=== PATIENT | female | born 1955 | race Caucasian/White ===

== ENCOUNTER 2017-02-12 21:43 | Emergency (ER) | payer BC ==
[2017-02-12] MEDS ORDERED: IPRATROPIUM/ALBUTEROL 3 ML VIAL NEB ONE ×3 (22:02→23:39)
--- NOTE | 2017-02-12 22:11 | ED.PDOC ---
History of Present Illness - General Chief Complaint: Respiratory Problem Stated Complaint: DYSPNEA Time Seen by Provider: 02/12/17 22:10 Source: patient Exam Limitations: no limitations - History of Present Illness Initial Comments: Bethany Andrews 61 y/o female brought by ems with jerky movements ,shaky more leg swelling and increasing confusion noted by that got worse today.She also fell yesterday stated she looks weak.Has CHF,COPD,DM 2.Has home oxygen wears it 24 hours. Timing/Duration: getting worse, other - one month Activities at Onset: rest Possible Cause: occasional episodes Improving Factors: nothing Worsening Factors: nothing Associated Symptoms: wheezing Respiratory Risk Factors: other - copd,chf Allergies/Adverse Reactions: Allergies NO KNOWN ALLERGY Allergy (Verified 04/14/14 18:03) Home Medications: Ambulatory Orders RX: Gabapentin 300 mg PO TID 06/21/15 Furosemide [Lasix] 20 mg PO DAILY@0700,1200 #60 tab 06/22/15 Doxycycline Hyclate [Morgidox 1X50MG] 50 mg PO DAILY 02/12/17 Exenatide [Bydureon] 2 mg SC WKLY 02/12/17 Metformin HCl [Metformin HCl ER] 500 mg PO BID 02/12/17 Review of Systems - Review of Systems Constitutional: States: weakness EENTM: States: no symptoms reported Respiratory: States: see HPI Cardiology: States: see HPI Genitourinary: States: no symptoms reported Musculoskeletal: States: no symptoms reported Neurological: States: see HPI Past Medical History (General) - Patient Medical History Hx Seizures: No Hx Stroke: No Hx Dementia: No Hx Asthma: No Hx of COPD: Yes Hx Cardiac Disorders: No Hx Congestive Heart Failure: Yes Hx Pacemaker: No Hx Hypertension: Yes Hx Thyroid Disease: No Hx Diabetes: Yes Hx Gastroesophageal Reflux: No Hx Renal Disease: No Hx Cancer: Yes - CERVICAL Hx of HIV: No Hx Hepatitis C: No Hx MRSA: No Surgical History: other - hysterectomy,right hip,left shoulder - Vaccination History Hx Tetanus, Diphtheria Vaccination: No Hx Influenza Vaccination: No Hx Pneumococcal Vaccination: No Immunizations Up to Date: Yes - Social History Hx Tobacco Use: Yes Hx Chewing Tobacco Use: No Hx Alcohol Use: No Hx Substance Use: No Hx Substance Use Treatment: No Hx Depression: No Hx Physical Abuse: No Hx Emotional Abuse: No Hx Suspected Abuse: No - Activities of Daily Living Patient Lives Alone: No - Grooming Ability: Independent Eating (Feeding) Ability: Independent Toileting Ability: Independent - Female History Patient is a Female of Child Bearing Age (10 -59 yrs old): No Patient : No Family Medical History - Family History Mother Living Status: Still Living Hx Family Asthma: Yes Hx Family Congestive Heart Failure: Yes Hx Family Hypertension: Yes Hx Family Stroke: No Hx Cardiac Disease: No Hx Family Diabetes: No Hx Family Cancer: No Hx Family;Other: COPD-E Physical Exam - Physical Exam General Appearance: No apparent distress, Other - somnolent Eyes, Ears, Nose, Throat Exam: PERRL/EOMI, normal ENT inspection, pharynx normal Neck: non-tender, full range of motion, supple Respiratory: no respiratory distress, no accessory muscle use, decreased breath sounds, rales - bilaterally Cardiovascular/Chest: normal peripheral pulses, no murmur, tachycardia Peripheral Pulses: radial,right: 2+, radial,left: 2+ Gastrointestinal/Abdominal: non tender, soft, no organomegaly, other - obese, anasarca Extremity: non-tender Neurologic: no motor/sensory deficits, other - somnolent Skin Exam: cyanosis - nailbeds/clubbing fingers Lymphatic: no adenopathy Progress - Progress Progress: 02/12/17 23:57 Vital Signs - 8 hr 02/12/17 02/12/17 02/12/17 21:55 22:10 22:44 Temperature 98.1 F Pulse Rate 100 H Pulse Rate [ 100 H 104 H Left Radial] Respiratory 22 22 22 Rate Blood Pressure 147/72 151/86 [Left Arm] O2 Sat by Pulse 86 L 94 L 88 L Oximetry 02/12/17 23:31 Temperature 98.1 F Pulse Rate 100 H Pulse Rate [ 101 H Left Radial] Respiratory 26 H Rate Blood Pressure 152/83 [Left Arm] O2 Sat by Pulse 86 L Oximetry - Results/Orders Results/Orders: Laboratory Tests 02/12/17 02/12/17 02/12/17 22:31 22:31 22:31 WBC 11.3 H RBC 4.56 Hgb 13.6 Hct 42.5 MCV 93.2 MCH 29.9 MCHC 32.0 L RDW 15.8 H Plt Count 239 MPV 8.7 Absolute Neuts (auto) 8.90 H Absolute Lymphs (auto) 1.20 Absolute Monos (auto) 1.00 H Absolute Eos (auto) 0.20 Absolute Basos (auto) 0.10 Neutrophils % 78.5 H Lymphocytes % 10.4 L Monocytes % 9.0 Eosinophils % 1.4 Basophils % 0.7 D-Dimer, Quantitative Sodium 138 Potassium 4.0 Chloride 95 L Carbon Dioxide 35 H Anion Gap 12.0 BUN 15 Creatinine 1.01 BUN/Creatinine Ratio 14.9 Random Glucose 117 H Serum Osmolality 277.5 Calcium 8.5 Total Bilirubin 0.6 AST 15 ALT 16 Alkaline Phosphatase 69 Troponin I 0.02 B-Natriuretic Peptide 130.0 H Serum Total Protein 7.7 Albumin 3.7 Globulin 4.0 H Albumin/Globulin Ratio 0.9 L 02/12/17 22:52 WBC RBC Hgb Hct MCV MCH MCHC RDW Plt Count MPV Absolute Neuts (auto) Absolute Lymphs (auto) Absolute Monos (auto) Absolute Eos (auto) Absolute Basos (auto) Neutrophils % Lymphocytes % Monocytes % Eosinophils % Basophils % D-Dimer, Quantitative < 230 Sodium Potassium Chloride Carbon Dioxide Anion Gap BUN Creatinine BUN/Creatinine Ratio Random Glucose Serum Osmolality Calcium Total Bilirubin AST ALT Alkaline Phosphatase Troponin I B-Natriuretic Peptide Serum Total Protein Albumin Globulin Albumin/Globulin Ratio Had 1800 cc urine output 2 hours after bumex drip - EKG/XRAY/CT EKG: Sinus, Tachy, no ST T wave changes Comments: heart rate-97 XRAY: chest - cardiomegaly with pulmonary edema Procedures - Intubation Time of Intubation: 05:00 - with videolaryngoscope Intubation Method: orotracheal Tube Size (cm): 8.0 Medications: Succinylcholine, Versed Breath Sounds after Intubation: equal Intubation Complications: no complications Post Intubation Xray: Yes Departure - Departure Clinical Impression: Pulmonary edema with congestive heart failure with preserved left ventricular function, Anasarca Respiratory failure Qualifiers: Chronicity: acute on chronic Respiratory failure complication: hypoxia and hypercapnia Qualified Code(s): J96.21 - Acute and chronic respiratory failure with hypoxia Obesity Qualifiers: Obesity type: with alveolar hypoventilation Obesity classification: adult class 3 (BMI >= 40) Serious obesity comorbidity presence: with serious comorbidity Body mass index: BMI 40.0-44.9 Qualified Code(s): E66.2 - Morbid ( severe) obesity with alveolar hypoventilation Nicotine dependence Qualifiers: Nicotine product type: cigarettes Substance use status: unspecified nicotine- induced disorder Qualified Code(s): F17.219 - Nicotine dependence, cigarettes, with unspecified nicotine-induced disorders Disposition: Transfer to Hospital Condition: Fair Departure Forms: Patient Portal Self Enrollment Home Medications: Ambulatory Orders RX: Gabapentin 300 mg PO TID 06/21/15 Furosemide [Lasix] 20 mg PO DAILY@0700,1200 #60 tab 06/22/15 Doxycycline Hyclate [Morgidox 1X50MG] 50 mg PO DAILY 02/12/17 Exenatide [Bydureon] 2 mg SC WKLY 02/12/17 Metformin HCl [Metformin HCl ER] 500 mg PO BID 02/12/17 Transfer to Outside Facility - Transfer Information Accepting Provider:: Dr. Rafi Aponte Accepting Facility: [facility] Reason for Transfer: required specialist not available
[2017-02-12] MEDS ORDERED: methylPREDNISolone SODIUM SUC 125 MG/2 ML VIAL IV ONE (22:13)
--- NOTE | 2017-02-12 22:38 | RAD ---
EXAM DESCRIPTION: Chest,1 View CLINICAL HISTORY: 61 years Female, sob COMPARISON: 06/22/2015 FINDINGS: Atherosclerotic calcification of the thoracic aorta. Cardiomegaly. Pulmonary vascular congestion with interstitial edema. Likely small bilateral pleural effusions. Right IJ Mediport catheter with tip in the SVC. No acute osseous abnormalities. IMPRESSION: 1. Cardiomegaly with pulmonary edema and small bilateral pleural effusions. Electronically signed by: Abhishek Bobo 02/12/2017 10:37 PM CDT
[2017-02-12] MEDS ORDERED: BUMETANIDE 0.25 MG/ML VIAL IV ONE (22:52)
[2017-02-13] MEDS ORDERED: BUMETANIDE IV ONE (01:05)
[2017-02-13] MEDS ORDERED: SODIUM CHLORIDE 0.9% IV ONE (01:05)
[2017-02-13] MEDS ORDERED: BUMETANIDE 0.25 MG/ML VIAL ONE ×4 (01:16→06:03)
[2017-02-13] MEDS ORDERED: SODIUM CHLORIDE 0.9% 50ML 50 ML ONE ×2 (01:18→06:03)
[2017-02-13] MEDS ORDERED: NITROGLYCERIN 0.4 MG/HR PATCH TOP ONE ×2 (02:58→03:00)
[2017-02-13] MEDS ORDERED: SUCCINYLCHOLINE CHLORIDE 200 MG/10 ML VIAL ONE (04:42)
[2017-02-13 05:26] VITALS: BP 118/78; O2SAT 92
--- NOTE | 2017-02-13 05:26 | RAD ---
EXAM DESCRIPTION: Chest,1 View CLINICAL HISTORY: tube placement COMPARISON: 02/12/2017 FINDINGS: Single frontal view of the chest. Endotracheal tube with tip 1 cm above the rehan. Right IJ Mediport with tip at the atriocaval junction. Cardiomegaly. Bilateral interstitial opacities. Likely small bilateral pleural effusions. No pneumothorax. No acute osseous abnormalities. Mildly improved aeration bilaterally from the previous study. No consolidation, pneumothorax, or pleural effusion. No displaced rib fractures identified. Upper abdominal soft tissues are unremarkable. IMPRESSION: 1. Interval slight of endotracheal tube. Endotracheal tube is 1 cm above the rehan. Consider retracting 2-3 cm. 2. Persistent cardiomegaly with bilateral interstitial opacities and small bilateral pleural effusions with mildly improved aeration from the previous study. Electronically signed by: Abhishek Bobo 02/13/2017 5:25 AM CDT
[2017-02-13] MEDS ORDERED: ETOMIDATE INJECTION 2 MG/ML 20ML VIAL IV ONE (06:00)
[2017-02-13] MEDS ORDERED: MIDAZOLAM INJ 5 MG/5 ML VIAL IV ONE (06:00)
[2017-02-13] MEDS ORDERED: VECURONIUM BROMIDE 10 MG VIAL IV ONE (06:00)
[2017-02-13] MEDS ORDERED: SODIUM CHLORIDE 0.9% 1000ML 1,000 ML IVS ONE (06:00)
[2017-02-13 06:29] VITALS: TEMP 98.7
== END 2017-02-13 06:29 | disposition short-term general hospital (02) ==
LOC: ER 21:43
DX: J96.21 Acute and chronic respiratory failure with hypoxia (principal); E66.2 Morbid (severe) obesity with alveolar hypoventilation; Z68.41 Body mass index [BMI] 40.0-44.9, adult; I11.0 Hypertensive heart disease with heart failure; I50.9 Heart failure, unspecified; J44.9 Chronic obstructive pulmonary disease, unspecified; Z85.41 Personal history of malignant neoplasm of cervix uteri; Z87.891 Personal history of nicotine dependence
CPT/HCPCS: 36415; 36600; 71010; 80053; 81001; 82803; 82805; 83880; 84484; 85025; 85379; 93005; 94640; 94660; 94770; A4216; J0330; J2060; J2250; J2930; J3490; J7030; J7620

== ENCOUNTER → 2017-03-31 | Outpatient (CLI) | payer BC | END | disposition home or self-care (01) | LOC: GMAJ 10:25 | PROVIDERS: ATTEND Family Medicine | DX: I50.9 Heart failure, unspecified (principal) ==

== ENCOUNTER 2017-04-26 16:17 | Emergency (ER) | payer BC ==
[2017-04-26] MEDS ORDERED: IPRATROPIUM/ALBUTEROL 3 ML VIAL NEB ONE (16:27)
[2017-04-26] MEDS ORDERED: methylPREDNISolone SODIUM SUC 40 MG/ML VIAL IV ONE (16:28)
[2017-04-26] MEDS ORDERED: FUROSEMIDE INJ 40 MG/4 ML VIAL IV ONE (16:28)
--- NOTE | 2017-04-26 16:58 | RAD ---
EXAM DESCRIPTION: Chest,1 View CLINICAL HISTORY: sob, ams, hypoxia COMPARISON: 02/13/2017 FINDINGS: Central catheter tip is at the distal SVC. The heart remains enlarged. Central pulmonary vascular engorgement is mildly improved. No definite focal consolidation. Visualized osseous structures are within normal limits. IMPRESSION: Cardiomegaly and central pulmonary vascular engorgement. Electronically signed by: Avila Rooney 04/26/2017 4:56 PM MICRO LAB ANALYST
[2017-04-26] MEDS ORDERED: WATER FOR INJ 10 ML VIAL INJ ONE (17:40)
[2017-04-26] MEDS ORDERED: ETOMIDATE INJECTION 2 MG/ML 20ML VIAL IV ONE (17:40)
[2017-04-26] MEDS ORDERED: MIDAZOLAM INJ 5 MG/5 ML VIAL ONE ×3 (17:40→18:20)
[2017-04-26] MEDS ORDERED: VECURONIUM BROMIDE 10 MG VIAL IV ONE (17:40)
[2017-04-26] MEDS ORDERED: SUCCINYLCHOLINE CHLORIDE 200 MG/10 ML VIAL ONE (17:41)
[2017-04-26] MEDS ORDERED: MORPHINE SULFATE INJ 10 MG/ML VIAL ONE (17:59)
[2017-04-26] MEDS ORDERED: PIPERACILLIN/TAZOBACTAM 3.375 GM in SODIUM CHLORIDE 0.9% 100ML 100 ML IVPB ONE (18:18)
--- NOTE | 2017-04-26 18:29 | ED.PDOC ---
History of Present Illness - General Chief Complaint: Respiratory Problem Stated Complaint: shortness of breath Time Seen by Provider: 04/26/17 16:23 Source: family Exam Limitations: clinical condition - History of Present Illness Initial Comments: the patient is a 61-year-old female brought into the emergency room secondary to altered mental status. The patient told her that she was going outside to the desk. It is no desk outside and it is 15. The patient tripped and fell but did not hurt herself. The patient has a long-standing history of untreated obstructive sleep apnea and chronic hypoventilation. She had been feeling okay up until today apparently. She was in [facility] one and a half months ago for hypoventilation and a CHF exacerbation. She has a history of type 2 diabetes, COPD and is oxygen dependent, as well as congestive heart failure. She has not been coughing up more than usual. The confusion this afternoon was the first time she's had confusion since the last hospital stay. Again she is not using any CPAP or BiPAP. upon initial evaluation by EMS the patient was satting 55% on 5 L nasal cannula. Timing/Duration: unsure Severity: severe Improving Factors: nothing Worsening Factors: nothing Allergies/Adverse Reactions: Allergies NO KNOWN ALLERGY Allergy (Verified 04/14/14 18:03) Home Medications: Ambulatory Orders Gabapentin 300 mg PO TID 06/21/15 Furosemide [Lasix] 20 mg PO DAILY@0700,1200 #60 tab 06/22/15 Doxycycline Hyclate [Morgidox 1X50MG] 50 mg PO DAILY 02/12/17 Exenatide [Bydureon] 2 mg SC WKLY 02/12/17 Metformin HCl [Metformin HCl ER] 500 mg PO BID 02/12/17 Review of Systems - Review of Systems Review of Systems: 04/26/17 18:30 information is given by as the patient is too altered to give accurate information Constitutional: States: malaise, weakness EENTM: States: nose congestion Respiratory: States: cough, short of breath Cardiology: States: no symptoms reported Gastrointestinal/Abdominal: States: no symptoms reported Genitourinary: States: no symptoms reported Musculoskeletal: States: no symptoms reported Skin: States: no symptoms reported Neurological: States: other - onfusion Endocrine: States: no symptoms reported All other Systems: No Change from Baseline Past Medical History (General) - Patient Medical History Hx Seizures: No Hx Stroke: No Hx Dementia: No Hx Asthma: No Hx of COPD: Yes Hx Cardiac Disorders: No Hx Congestive Heart Failure: Yes Hx Pacemaker: No Hx Hypertension: Yes Hx Thyroid Disease: No Hx Diabetes: Yes Hx Gastroesophageal Reflux: No Hx Renal Disease: No Hx Cancer: Yes - CERVICAL Hx of HIV: No Hx Hepatitis C: No Hx MRSA: No - Vaccination History Hx Tetanus, Diphtheria Vaccination: No Hx Influenza Vaccination: No Hx Pneumococcal Vaccination: No - Social History Hx Tobacco Use: Yes Hx Chewing Tobacco Use: No Hx Alcohol Use: No Hx Substance Use: No Hx Substance Use Treatment: No Hx Depression: No Hx Physical Abuse: No Hx Emotional Abuse: No Hx Suspected Abuse: No - Female History Patient : No Family Medical History - Family History Mother Living Status: Still Living Hx Family Asthma: Yes Hx Family Congestive Heart Failure: Yes Hx Family Hypertension: Yes Hx Family Stroke: No Hx Cardiac Disease: No Hx Family Diabetes: No Hx Family Cancer: No Hx Family;Other: COPD-E Physical Exam - Physical Exam General Appearance: Lethargic - arousable to voice. She is able to protect her airway. She is able to move her extremities. Eye Exam: bilateral normal Ears, Nose, Throat: hearing grossly normal, normal ENT inspection - upper denture plate. Small posterior oropharynx. Neck: non-tender, full range of motion, supple - short thick neck Respiratory: respiratory distress, decreased breath sounds, accessory muscle use , rales - at bases, wheezing - cattered Cardiovascular/Chest: normal peripheral pulses, tachycardia, other - + edema to bilateral lower extremities Peripheral Pulses: radial,right: 2+, radial,left: 2+ Gastrointestinal/Abdominal: soft, other - morbidly obese Rectal Exam: deferred Back Exam: no CVA tenderness Extremity: non-tender, no calf tenderness, normal capillary refill, pedal edema Neurologic: wildlife refuge specialist II-XII nml as tested, other - he patient is drowsy and lethargic. Skin Exam: other - initially the patient is very pale and mildly cyanoticbut this does improve with improvement in oxygenation Comments: Vital Signs - 24 hr 04/26/17 04/26/17 04/26/17 16:27 16:35 18:08 Temperature 101 F H Pulse Rate 110 H Pulse Rate [ 120 H Right Ulnar] Respiratory 25 H 60 H 60 H Rate Blood Pressure 152/81 [Right Arm] O2 Sat by Pulse 96 55 L Oximetry Progress - Progress Progress: 04/26/17 18:34 the patient's a 61-year-old female presenting to the emergency room secondary to altered mental status that appears to be due to hypoventilation/ acute on chronic respiratory failure likely exacerbated by left lower lung pneumonia. Pneumonia was not seen initially on the first chest x-ray but did appear on the second for ET tube placement. The patient is being started on Zosyn. She did have a blood culture drawn. She did receive 40 mg of IV Solu- Medrol. She also received a couple of breathing treatments. she is not hypoglycemic. The patient had a size 7.5 ET tube placed at 21 cm to the gum with confirmation of placement by auscultation and then end-tidal CO2 followed by chest x-ray. transferring to [facility] for higher level of care. The patient may ultimately need tracheostomy to prevent further duration in the future. She did also receive 1 dose of IV Lasix for increasing edema to her lower extremities and her history of CHF. Critical care time spent on treatment for not otherwise billable procedures: 45 minutes. - Results/Orders Results/Orders: 04/27/17 09:00 Oxygen Daily 04/26/17 16:26 Telemetry .CONTINUOUS 04/26/17 16:27 EKG Assessment ONCE 04/26/17 16:30 EKG STAT 04/26/17 16:44 BLOOD CULTURE Stat 04/26/17 16:50 ABG [Arterial Blood Gas] Stat 04/26/17 17:31 ABG [Arterial Blood Gas] Stat 04/26/17 18:18 Piperacillin/Tazobactam [Zosyn] 3.375 gm Sodium Chloride 0.9% 100Ml [NS (NACL 0.9%) 100ml] 100 ml IVPB ONCE Flu A+B (PCR) [INFLUENZA A & B BY PCR] Stat Laboratory Results - last 24 hr 04/26/17 04/26/17 04/26/17 16:27 16:44 16:44 WBC RBC Hgb Hct MCV MCH MCHC RDW Plt Count MPV Absolute Neuts (auto) Absolute Lymphs (auto) Absolute Monos (auto) Absolute Eos (auto) Absolute Basos (auto) Neutrophils % Lymphocytes % Monocytes % Eosinophils % Basophils % PT 13.5 H INR 1.200 PTT (SP) 30.9 D-Dimer, Quantitative < 230 Sodium 132 L Potassium 4.7 Chloride 92 L Carbon Dioxide 31 Anion Gap 13.7 BUN 17 Creatinine 1.06 BUN/Creatinine Ratio 16.0 POC Glucose 120 H Random Glucose 153 H Serum Osmolality 269.1 L Lactic Acid Calcium 9.3 Magnesium 2.0 Total Bilirubin 0.6 AST 26 ALT 20 Alkaline Phosphatase 76 Creatine Kinase 28 CK-MB (CK-2) 1.1 CK-MB (CK-2) % Not Reportable Troponin I 0.03 B-Natriuretic Peptide 681.0 H* Serum Total Protein 8.0 Albumin 4.0 Globulin 4.0 H Albumin/Globulin Ratio 1.0 L 04/26/17 04/26/17 16:44 16:44 WBC 9.6 RBC 5.04 Hgb 14.3 Hct 45.5 MCV 90.3 MCH 28.5 MCHC 31.5 L RDW 17.3 H Plt Count 247 MPV 9.3 Absolute Neuts (auto) 7.90 H Absolute Lymphs (auto) 0.30 L Absolute Monos (auto) 1.30 H Absolute Eos (auto) 0.00 Absolute Basos (auto) 0.00 Neutrophils % 82.2 H Lymphocytes % 3.1 L Monocytes % 13.9 H Eosinophils % 0.4 L Basophils % 0.4 PT INR PTT (SP) D-Dimer, Quantitative Sodium Potassium Chloride Carbon Dioxide Anion Gap BUN Creatinine BUN/Creatinine Ratio POC Glucose Random Glucose Serum Osmolality Lactic Acid 1.3 Calcium Magnesium Total Bilirubin AST ALT Alkaline Phosphatase Creatine Kinase CK-MB (CK-2) CK-MB (CK-2) % Troponin I B-Natriuretic Peptide Serum Total Protein Albumin Globulin Albumin/Globulin Ratio initial PaCO2 was approximately 90. Repeat was approximately 100. Initial and repeat pH's are 7.2. initial chest x-ray showed changes consistent with her congestive heart failure. Repeat chest x-ray did show a left lower lobe infiltrate consistent with a pneumonia.ET tube was at the level of the clavicles. Departure - Departure Clinical Impression: Hypoventilation associated with obesity Respiratory failure Qualifiers: Chronicity: acute on chronic Respiratory failure complication: hypoxia and hypercapnia Qualified Code(s): J96.21 - Acute and chronic respiratory failure with hypoxia; J96.22 - Acute and chronic respiratory failure with hypercapnia Pneumonia Qualifiers: Pneumonia type: due to unspecified organism Laterality: left Lung location: lower lobe of lung Qualified Code(s): J18.1 - Lobar pneumonia, unspecified organism Disposition: Transfer to Hospital Home Medications: Ambulatory Orders Gabapentin 300 mg PO TID 06/21/15 Furosemide [Lasix] 20 mg PO DAILY@0700,1200 #60 tab 06/22/15 Doxycycline Hyclate [Morgidox 1X50MG] 50 mg PO DAILY 02/12/17 Exenatide [Bydureon] 2 mg SC WKLY 02/12/17 Metformin HCl [Metformin HCl ER] 500 mg PO BID 02/12/17 Transfer to Outside Facility - Transfer Information Accepting Provider:: dr calle Accepting Facility: [facility] Reason for Transfer: required specialist not available
--- NOTE | 2017-04-26 18:31 | RAD ---
EXAM DESCRIPTION: Chest,1 View CLINICAL HISTORY: post intubation COMPARISON: 04/26/2017 at 1641 hours FINDINGS: Central catheter tip is at the distal SVC. ET tube tip is at the level of the inferior aspect of the clavicular heads. Consolidation is seen at the left lung base. Cardiomegaly persists. There is again mild bilateral peribronchial cuffing. IMPRESSION: Left lung base consolidation. Electronically signed by: Avila Rooney 04/26/2017 6:30 PM URGENT CARE PHYSICIAN ASSISTANT
[2017-04-26] MEDS ORDERED: PIPERACILLIN/TAZOBACTAM 3.375 GM VIAL IVPB ONE (18:45)
[2017-04-26] MEDS ORDERED: SODIUM CHLORIDE 0.9% 100ML 100 ML IVPB ONE (18:45)
[2017-04-26 19:28] VITALS: BP 109/73; TEMP 100.9; O2SAT 94
== END 2017-04-26 19:27 | disposition short-term general hospital (02) ==
LOC: ER 16:17
DX: J18.1 Lobar pneumonia, unspecified organism (principal); J96.21 Acute and chronic respiratory failure with hypoxia; J96.22 Acute and chronic respiratory failure with hypercapnia; I11.0 Hypertensive heart disease with heart failure; I50.9 Heart failure, unspecified; E11.9 Type 2 diabetes mellitus without complications; Z85.41 Personal history of malignant neoplasm of cervix uteri; Z87.891 Personal history of nicotine dependence; J44.9 Chronic obstructive pulmonary disease, unspecified
CPT/HCPCS: 31500; 36415; 36600; 71010; 80053; 82550; 82553; 82803; 82805; 82948; 83605; 83735; 83880; 84484; 85025; 85379; 85610; 85730; 87040; 87502; 93005; 94002; 94640; 94660; 94770; A4216; J0330; J1030; J1940; J2250; J2270; J2543; J7050; J7620